=== PATIENT | female | born 1950 | race Two or more races ===

== ENCOUNTER 2025-04-22 15:36 | Inpatient (IN) | payer MEDICARE, OTHER ==
[~2025-04-22] VITALS: Ht 149.9 cm; Wt 54.4 kg
[~2025-04-22 15:36] MED LIST: [UNRECOGNIZED DRUG - REMARK]
[2025-04-22] MEDS ORDERED: VITA40TA PO (17:41)
[2025-04-22] MEDS ORDERED: IBUP-1955 PO (17:41)
[2025-04-22] MEDS ORDERED: AMLO-212 PO (17:41)
[2025-04-22] MEDS ORDERED: CA C1TAB88 PO (17:41)
[2025-04-22] MEDS ORDERED: PANT40TA49 PO (17:41)
[2025-04-22] MEDS ORDERED: QUET400T PO (17:41)
[2025-04-22] MEDS ORDERED: PREG-59 PO (17:41)
[2025-04-22] MEDS ORDERED: CHOL500052 PO (17:41)
[2025-04-22] MEDS ORDERED: BACL10TA PO (17:41)
[2025-04-22] MEDS ORDERED: RISP3TAB61 PO (17:41)
[2025-04-22] MEDS ORDERED: MIRT-90 PO (17:41)
[2025-04-22 19:30] VITALS: BP 121/60; TEMP 98.1; O2SAT 95
[2025-04-22] MEDS ORDERED: QUETIAPINE FUMARATE 25 MG TABLET PO PRN ×2 (20:00)
[2025-04-22] MEDS ORDERED: MAG HYDROX/AL HYDROX/SIMETH 30 ML UDC PO PRN (20:00)
[2025-04-22] MEDS ORDERED: ZOLPIDEM TARTRATE 5 MG TABLET PO PRN (20:00)
[2025-04-22 20:16] VITALS: BP 121/60; TEMP 98.1; O2SAT 95
[2025-04-22] MEDS: BLOOD SUGAR DIAGNOSTIC 1 EACH STRIP IN ONE (20:33)
[2025-04-23 08:00] VITALS: BP 138/60; TEMP 98.6; O2SAT 97
[2025-04-23 08:22] LABS: ASPARTATE AMINOTRANSFERASE 12 U/L (15-37); CALCIUM, SERUM 8.5 mg/dL (8.5-10.1); CREATININE 0.5 mg/dL (0.6-1.3); SODIUM SERUM 141 mmol/L (136-145); TOTAL PROTEIN, SERUM 6.9 g/dL (6.4-8.2); UREA NITROGEN, BLOOD 17 mg/dL (7-18)
[2025-04-23] MEDS: PREGABALIN 100 MG CAPSULE PO SCH (08:24)
[2025-04-23] MEDS: AMLODIPINE BESYLATE 5 MG TABLET PO SCH (08:24)
[2025-04-23] MEDS: PANTOPRAZOLE 40 MG TABLET.DR PO SCH (08:25)
[2025-04-23 08:59] LABS: LDL 91 mg/dL (0-99)
[2025-04-23 16:00] VITALS: BP 154/67; TEMP 98.4; O2SAT 96
[2025-04-23 19:41] VITALS: BP 117/68; TEMP 98.1; O2SAT 98
[2025-04-23] MEDS: BACLOFEN (10 MG) 10 MG TABLET PO SCH (21:05)
[2025-04-23] MEDS: TRAZODONE 50 MG TABLET PO SCH (21:05)
[2025-04-23] MEDS: RISPERIDONE 0.25 MG TAB.RAPDIS PO SCH (21:05)
[2025-04-24 08:00] VITALS: BP 135/55; TEMP 97.8; O2SAT 96
[2025-04-24] MEDS: risperiDONE-M 0.5 MG TAB.RAPDIS PO SCH ×2 (09:33→20:29)
[2025-04-24] MEDS: IBUPROFEN 600 MG TABLET PO PRN (12:00)
[2025-04-24 16:10] VITALS: BP 135/66; TEMP 97.8; O2SAT 100
[2025-04-24 20:14] VITALS: BP 133/61; TEMP 97.8; O2SAT 99
[2025-04-25 08:00] VITALS: BP 133/59; TEMP 98.6; O2SAT 98
[2025-04-25 16:00] VITALS: BP 111/53; TEMP 98.4; O2SAT 99
[2025-04-25 20:11] VITALS: BP 120/53; TEMP 98.5; O2SAT 97
[2025-04-25] MEDS ORDERED: TRAZODONE 50 MG TABLET PO SCH (22:00)
[2025-04-25] MEDS: ZOLPIDEM TARTRATE 5 MG TABLET PO PRN (23:00)
[2025-04-25] MEDS: ACETAMINOPHEN 325 MG TABLET PO PRN (23:54)
[2025-04-26 08:00] VITALS: BP 123/67; TEMP 97.8; O2SAT 95
[2025-04-26] MEDS: risperiDONE-M 0.5 MG TAB.RAPDIS PO SCH (08:46)
[2025-04-26 16:00] VITALS: BP 124/65; TEMP 97.8; O2SAT 100
[2025-04-26 20:20] VITALS: BP 128/52; TEMP 97.8; O2SAT 100
[2025-04-27 08:00] VITALS: BP 105/58; TEMP 97.7; O2SAT 98
[2025-04-27 16:00] VITALS: BP 124/56; TEMP 98.1; O2SAT 99
[2025-04-27 20:23] VITALS: BP 149/64; TEMP 98.1; O2SAT 98
[2025-04-27] MEDS: TRAZODONE 50 MG TABLET PO SCH (21:28)
[2025-04-28 08:00] VITALS: BP 119/50; TEMP 98.7; O2SAT 98
[2025-04-28] MEDS: MAGNESIUM HYDROXIDE 30 ML UDC PO PRN (11:10)
[2025-04-28 16:00] VITALS: BP 113/56; TEMP 98.8; O2SAT 100
[2025-04-28 20:36] VITALS: BP 126/68; TEMP 98.2; O2SAT 98
[2025-04-29 08:00] VITALS: BP 121/65; TEMP 97.8; O2SAT 97
[2025-04-29 16:00] VITALS: BP 134/75; TEMP 98.1; O2SAT 96
[2025-04-29 20:00] VITALS: BP 120/65; TEMP 98.1; O2SAT 98
[2025-04-30 08:00] VITALS: BP 129/56; TEMP 98.1; O2SAT 100
[2025-04-30 16:00] VITALS: BP 108/61; TEMP 98.4; O2SAT 97
[2025-04-30 20:10] VITALS: BP 145/69; TEMP 98.1; O2SAT 97
[2025-05-01 08:00] VITALS: BP 169/75; TEMP 97.7; O2SAT 95
[2025-05-01] MEDS: RISPERIDONE 1 MG TAB.RAPDIS PO SCH (08:41)
[2025-05-01 16:11] VITALS: BP 135/65; TEMP 97.9; O2SAT 98
[2025-05-01 20:09] VITALS: BP 126/64; TEMP 97.9; O2SAT 100
[2025-05-02 07:43] VITALS: BP 135/61; TEMP 97.7
[2025-05-02 08:00] VITALS: BP 135/61; TEMP 97.7; O2SAT 98
[2025-05-02 15:56] VITALS: BP 139/64; TEMP 97.7; O2SAT 99
[2025-05-02 16:00] VITALS: BP 139/64; TEMP 97.7; O2SAT 99
[2025-05-02 20:15] VITALS: BP 119/68; TEMP 97.9; O2SAT 97
[2025-05-03 08:00] VITALS: BP 109/55; TEMP 97.9; O2SAT 98
[2025-05-03 16:00] VITALS: BP 110/52; TEMP 98; O2SAT 99
[2025-05-03 19:37] VITALS: BP 114/64; TEMP 98; O2SAT 98
[2025-05-04 08:00] VITALS: BP 123/74; TEMP 97.5; O2SAT 97
[2025-05-04 16:00] VITALS: BP 144/63; TEMP 97.7; O2SAT 96
[2025-05-04 20:00] VITALS: BP 125/66; TEMP 98.1; O2SAT 96
[2025-05-05 08:00] VITALS: BP 119/47; TEMP 98.1; O2SAT 97
[2025-05-05 16:00] VITALS: BP 144/61; TEMP 98.1; O2SAT 100
[2025-05-05 19:55] VITALS: BP 140/69; TEMP 98; O2SAT 97
[2025-05-06 08:06] VITALS: BP 118/65; TEMP 97.7; O2SAT 99
[2025-05-06 15:59] VITALS: BP 122/65; TEMP 97.6; O2SAT 97
[2025-05-06 20:39] VITALS: BP 130/61; TEMP 97.8; O2SAT 97
[2025-05-07 08:00] VITALS: BP 107/61; TEMP 97.8; O2SAT 97
== END 2025-05-07 13:30 | disposition home or self-care (01) | DRG 885 ==
LOC: ER 15:43 → GPS 19:32
PROVIDERS: ADMIT Psychiatry & Neurology Psychiatry; ATTEND Nurse Practitioner Acute Care
DX: F25.9 Schizoaffective disorder, unspecified (principal); F29 Unspecified psychosis not due to a substance or known physiological condition; I10 Essential (primary) hypertension; F32.A Depression, unspecified; R45.851 Suicidal ideations; F39 Unspecified mood [affective] disorder; K21.9 Gastro-esophageal reflux disease without esophagitis; I45.10 Unspecified right bundle-branch block; M19.90 Unspecified osteoarthritis, unspecified site; Z90.710 Acquired absence of both cervix and uterus; Z62.810 Personal history of physical and sexual abuse in childhood; Z79.899 Other long term (current) drug therapy; Z73.6 Limitation of activities due to disability; G89.29 Other chronic pain
CPT/HCPCS: 36415; 80053-TC; 80061-TC; 82962-TC; 87081-TC; 97110-TC; 97116-TC; 97530-TC